=== PATIENT | female | born 1950 | race Caucasian/White ===

== ENCOUNTER → 2022-08-04 13:59 | Outpatient (CLI) | payer MEDICARE, OTHER, SELFPAY ==
[2022-08-05 07:22] LABS: Rubeola Measles IgG > 300.0 AU/mL (Immune >16.4)
[2022-08-06 17:18] LABS: Mumps Virus IgG Antibody <9.0 AU/mL (Immune >10.9)
[2022-08-07 17:08] LABS: QuantiFERON Mitogen Value >10.00 IU/mL (.); QuantiFERON Nil Value 0.01 IU/mL (.); QuantiFERON TB Gold Plus Negative (Negative); QuantiFERON TB1 Ag Value 0.02 IU/mL (.); QuantiFERON TB2 Ag Value 0.01 IU/mL (.)
== END ==
PROVIDERS: PCP Family Medicine
DX: Z02.1 Encounter for pre-employment examination (principal)
CPT/HCPCS: 36415; 86480; 86735; 86762; 86765

== ENCOUNTER → 2022-08-22 13:57 | Outpatient (CLI) | payer MEDICARE, OTHER, SELFPAY | PROVIDERS: Referring Provider Internal Medicine; Visit Provider Internal Medicine | DX: Z23 Encounter for immunization (principal) | CPT/HCPCS: 90471; 90662 ==